=== PATIENT | male | born 1960 | race Caucasian/White ===

== ENCOUNTER 2019-01-23 02:54 | Inpatient (IN) ==
[2019-01-23 03:34] LABS: Bilirubin,Urine Negative (Negative); Blood,Urine Large (Negative); Clarity,Urine Cloudy (Clear); Color,Urine Yellow (Yellow); Glucose,Urine (UA) Normal (Normal); Ketones,Urine Negative (Negative); Leukocyte Esterase,Urine Negative (Negative); Nitrite,Urine Negative (Negative); PH,Urine 5.5 pH Units (5.0-8.0); Protein,Urine Trace mg/dL (Neg-Trace); Specific Gravity,Urine 1.022 (1.010-1.025); Urobilinogen,Urine Normal (Normal)
[2019-01-23 03:37] LABS: Hyaline Casts,Urine None Seen per lpf (None-Few); RBC,Urine 30-50 per hpf (0-3); Squamous Epithelial Cell,Urine Many per lpf (None-Few)
[2019-01-23 03:48] LABS: Amorphous Sediment,Urine Few (Few); Bacteria,Urine Few per hpf (None-Few)
[2019-01-23 03:48] LABS: Basophils % 0.4 %; Eosinophils # 0.2 K/mcL (0.0-0.6); Eosinophils % 1.7 %; Hematocrit 42.3 % (37.5-50.1); Hemoglobin 13.9 g/dL (12.9-16.9); Immature Granulocytes % 1.1 % (0-4); Lymphocytes # 1.1 K/mcL (0.6-4.6); Lymphocytes % 11.6 %; Mean Corpuscular HGB Conc 32.9 g/dL (31.6-35.5); Mean Corpuscular Hemoglobin 27.5 pg (28.0-33.3); Mean Corpuscular Volume 83.6 fL (83.0-100.0); Mean Platelet Volume 9.3 fL (9.4-12.4); Monocytes # 0.5 K/mcL (0.0-1.3); Monocytes % 5.2 %; Neutrophils # 7.9 K/mcL (1.6-8.9); Platelet Count 183 K/mcL (140-400); Red Blood Count 5.06 M/mcL (4.19-5.50); Red Cell Distribution Width 14.3 % (11.5-14.5)
[2019-01-23 04:07] LABS: Albumin 4.3 g/dL (3.5-5.7); Albumin/Globulin Ratio 1.1 (1.1-2.2); Bilirubin,Direct 0.1 mg/dL (0.0-0.2); Bilirubin,Indirect 0.5 mg/dL (0.0-1.2); Bilirubin,Total 0.6 mg/dL (0.3-1.0); Calcium 10.1 mg/dL (8.6-10.3); Globulin 3.8 g/dL (2.4-3.5); Potassium 3.9 mEq/L (3.5-5.1); Total Protein 8.1 g/dL (6.4-8.9)
[2019-01-23] MEDS ORDERED: Ondansetron ODT 4 MG TAB.RAPDIS SL ONE (04:39)
[2019-01-23] MEDS ORDERED: *HR* HYDROcodone/Acet 10/325 mg TABLET PO ONE (04:39)
--- NOTE | 2019-01-23 05:05 | Emergency Department Note ---
Disposition Clinical Impression: Acute kidney injury, Hydronephrosis concurrent with and due to calculi of kidney and ureter, Nephrolithiasis Disposition: Still a Patient Condition: Fair Referrals: Manuel Swanson MD [Primary Care Provider] - Juan F Vasquez MD [Partnered Physician] - Forms: ED Satisfaction Letter, Work/School Release Time of Disposition: 07:13 Abdominal Pain HPI - General Chief Complaint: ED Abdominal Pain Stated Complaint: right flank pain N/V Time Seen by Provider: 01/23/19 04:29 Source: patient, family Mode of arrival: ambulatory Limitations: no limitations Nursing Notes Reviewed: Yes Vital Signs Reviewed: Yes - History of Present Illness HPI Narrative: 58 yo male with PMHx of kidney stones, CHF, HLD, HTN, CVA, atrial fibrillation, diabetes presents to the emergency department with right flank pain radiating into his groin since Friday night. Patient states the pain was of sudden onset and feels exactly like his other kidney stones. He has not had any fevers at home, pain with urination, blood in his urine. He has been nauseous and vomiting and took some of his home dose of Zofran which helped relieve the nausea for short time periods. He states the pain is currently an 8 out of 10 and he cannot uncomfortable. He has needed stent placement on previous kidney stones as they had been too large to pass. He is currently on blood thinners for his afib and CVA. He denies any other complaints at this time. Pain Scale: 7 - Related Data Home Medications Medication Instructions Recorded Confirmed Atorvastatin [Lipitor] 10 mg PO HS 07/05/15 06/17/17 Insulin Glargine,Hum.rec.anlog 80 unit SQ HS 07/05/15 11/14/18 [Lantus Solostar] Aspirin 81 mg PO DAILY 07/22/16 11/14/18 Rivaroxaban [Xarelto] 20 mg PO 1700 07/22/16 11/14/18 Carvedilol [Coreg] 25 mg PO BID 11/14/18 11/14/18 Docusate [Colace] 100 mg PO BID 11/14/18 11/14/18 Lidocaine Patch [Lidoderm 5% patch] 1 each TP DAILY 11/14/18 11/14/18 OxyCODONE Immed Rel [Roxicodone 5 5 mg PO Q4HR PRN 11/14/18 11/14/18 MG] Sertraline [Zoloft] 50 mg PO DAILY 11/14/18 11/14/18 Spironolactone [Aldactone] 25 mg PO DAILY 11/14/18 11/14/18 Allergies Allergy/AdvReac Type Severity Reaction Status Date / Time sotalol Allergy Unknown See Verified 01/23/19 03:10 Comments lisinopril Allergy Anaphylaxis Verified 01/23/19 03:10 amiodarone AdvReac See Verified 01/23/19 03:10 Comments amitriptyline AdvReac Confusion Verified 01/23/19 03:10 dofetilide [From Tikosyn] AdvReac Insomnia Verified 01/23/19 03:10 Nortriptyline AdvReac Confusion Verified 01/23/19 03:10 trazodone AdvReac Confusion Verified 01/23/19 03:10 Zolpidem [From Ambien] AdvReac Confusion Verified 01/23/19 03:10 All systems ED: reviewed and negative except as stated. Review of Systems: As Per HPI Constitutional: Denies: fever, chills, weakness Cardiovascular: Denies: chest pain, palpitations, dyspnea on exertion Respiratory: Denies: cough, dyspnea, wheezes Gastrointestinal: Reports: abdominal pain, nausea, vomiting. Denies: diarrhea, hematemesis Genitourinary: Denies: dysuria, hematuria Musculoskeletal: Reports: back pain Integumentary: Denies: rash Neurological: Denies: headache, weakness, numbness Endocrine: Denies: fatigue Abdominal Pain PMH - Past Medical History Medical history: Reports: atrial fibrillation, CHF, CVA, diabetes, hyperlipidemia, hypertension, kidney stones, seizures Male Surgical History: Reports: cholecystectomy, other Psychiatric history: Reports: anxiety, depression - Social History Smoking status: Never smoker Alcohol use: Reports: none Drug use: Reports: none Physical Exam - General Limitations: no limitations General appearance: alert, in no apparent distress - Head Head exam: atraumatic, normocephalic - Eye Eye exam: Present: normal appearance, PERRL, EOMI - Chest Chest inspection: Present: normal inspection. Absent: tenderness, rash - Respiratory Respiratory exam: Present: normal lung sounds bilaterally - Cardiovascular Cardiovascular exam: Present: regular rate, normal rhythm - Abdominal Exam Abdominal exam: Present: soft, Non-Tender. Absent: distention, guarding, rebound, rigidity Abdominal tenderness: Absent: suprapubic - Extremities Exam Extremities exam: Present: normal inspection. Absent: tenderness, pedal edema - Back Exam Back exam: Present: CVA tenderness (R). Absent: CVA tenderness (L) - Neurological Exam Neurological exam: Present: alert, oriented X3 - Psychiatric Psychiatric exam: Present: normal affect, normal mood - Skin Skin exam: Present: warm, dry, intact Course Vital Signs Temperature 98.1 F 01/23/19 03:07 Pulse Rate 91 01/23/19 03:07 Respiratory Rate 20 01/23/19 03:07 Blood Pressure 130/74 01/23/19 03:07 O2 Sat by Pulse Oximetry 94 01/23/19 03:07 Temperature 98.1 F 01/23/19 03:07 Pulse Rate 91 01/23/19 03:07 Respiratory Rate 20 01/23/19 03:07 Blood Pressure 130/74 01/23/19 03:07 O2 Sat by Pulse Oximetry 94 01/23/19 03:07 Oxygen Delivery Oxygen Delivery Room Air Abdominal Pain - MDM Narrative Medical decision making narrative: Patient with history of kidney stones presents to the emergency department with concern for another kidney stone. As he has needed urologic procedures for previous kidney stones and his creatinine is elevated on his visit today for the first time in his history here, we will obtain a noncontrast CT scan of the abdomen looking for hydronephrosis. The patient will also be given [place] for pain, Zofran for nausea and a liter of IV fluids for his headache. Urinalysis does not show any signs of infection. Lab work shows a new LIZZY without previous history of kidney disease. 0625 - CT scan of the abdomen demonstrates an obstructing stone 5-6mm at the mid ureter. The patient has just received his pain medications and will receive 1L of IV fluids for his LIZZY. Dr. Vasquez was called and informed of the patient and he states this patient can be seen on Friday if his pain and nausea can be controlled. We will reassess the patient once he has had his fluid bolus to determine disposition. 0700 - Pts pain is still not well controlled and he is agreeable with admission for further pain management and inpatient procedure. - Medical Records Medical records reviewed: Yes I reviewed the patient's medical records. - Lab Data Lab results reviewed: Yes I reviewed the patient's lab results. Result diagrams: 01/23/19 03:32 01/23/19 03:32 Lab Results 01/23/19 01/23/19 01/23/19 Range/Units 03:16 03:32 03:32 WBC 9.8 (4.3-11.1) K/mcL RBC 5.06 (4.19-5.50) M/mcL Hgb 13.9 (12.9-16.9) g/dL Hct 42.3 (37.5-50.1) % MCV 83.6 (83.0-100.0) fL MCH 27.5 L (28.0-33.3) pg MCHC 32.9 (31.6-35.5) g/dL RDW 14.3 (11.5-14.5) % Plt Count 183 (140-400) K/mcL MPV 9.3 L (9.4-12.4) fL Immature Gran % 1.1 (0-4) % Seg Neutrophils % 80.0 % Lymphocytes % 11.6 % Monocytes % 5.2 % Eosinophils % 1.7 % Basophils % 0.4 % Neutrophils # 7.9 (1.6-8.9) K/mcL Lymphocytes # 1.1 (0.6-4.6) K/mcL Monocytes # 0.5 (0.0-1.3) K/mcL Eosinophils # 0.2 (0.0-0.6) K/mcL Basophils # 0.0 (0.0-0.2) K/mcL Sodium 133 L (136-145) mEq/L Potassium 3.9 (3.5-5.1) mEq/L Chloride 95 L (98-107) mEq/L Carbon Dioxide 27 (23-29) mEq/L BUN 26 H (6-20) mg/dL Creatinine 1.90 H (0.70-1.30) mg/dL Est GFR ( Amer) 45 L (> 60) Est GFR (Non-Af Amer) 37 L (> 60) BUN/Creatinine Ratio 14 (6-26) Glucose 209 H (70-105) mg/dL Calculated Osmolality 287 (280-300) Calcium 10.1 (8.6-10.3) mg/dL Total Bilirubin 0.6 (0.3-1.0) mg/dL Direct Bilirubin 0.1 (0.0-0.2) mg/dL Indirect Bilirubin 0.5 (0.0-1.2) mg/dL AST 19 (13-39) Units/L ALT 18 (7-52) Units/L Alkaline Phosphatase 84 (34-104) Units/L Serum Total Protein 8.1 (6.4-8.9) g/dL Albumin 4.3 (3.5-5.7) g/dL Globulin 3.8 H (2.4-3.5) g/dL Albumin/Globulin Ratio 1.1 (1.1-2.2) Amylase 37 (29-103) Units/L Lipase 60 (11-82) Units/L Urine Color Yellow (Yellow) Urine Clarity Cloudy A (Clear) Urine pH 5.5 (5.0-8.0) pH Units Ur Specific [place] 1.022 (1.010-1.025) Urine Protein Trace (Neg-Trace) mg/dL Urine Glucose (UA) Normal (Normal) mg/dL Urine Ketones Negative (Negative) mg/dL Urine Blood Large H (Negative) Urine Nitrite Negative (Negative) Urine Bilirubin Negative (Negative) Urine Urobilinogen Normal (Normal) mg/dL Ur Leukocyte Esterase Negative (Negative) Urine Microscopic RBC 30-50 H (0-3) per hpf Urine Microscopic WBC 5-15 H (0-3) per hpf Ur Squamous Epith Cells Many H (None-Few) per lpf Amorphous Sediment Few (Few) Urine Bacteria Few (None-Few) per hpf Hyaline Casts None Seen (None-Few) per lpf Ur Culture Indicated? YES A (NO) - Radiology Data Radiology results reviewed: Yes I reviewed the patient's radiology results.
[2019-01-23] MEDS ORDERED: 0.9 % Sodium Chloride 1,000 ML IVC ONE (05:09)
--- NOTE | 2019-01-23 06:13 | Emergency Department Note ---
Disposition Clinical Impression: Acute kidney injury, Hydronephrosis concurrent with and due to calculi of kidney and ureter, Nephrolithiasis Disposition: Still a Patient Condition: Fair Referrals: Juan F Vasquez MD [Partnered Physician] - Manuel Swanson MD [Primary Care Provider] - Forms: ED Satisfaction Letter, Work/School Release General Adult HPI - General Chief complaint: ED Abdominal Pain Stated complaint: right flank pain N/V Time Seen by Provider: 01/23/19 04:29 Source: patient, family Mode of arrival: ambulatory Limitations: no limitations Nursing Notes Reviewed: Yes Vital Signs Reviewed: Yes - History of Present Illness Pain Scale: 7 - Related Data Home Medications Medication Instructions Recorded Confirmed Atorvastatin [Lipitor] 10 mg PO HS 07/05/15 01/23/19 Insulin Glargine,Hum.rec.anlog 80 unit SQ HS 07/05/15 01/23/19 [Lantus Solostar] Aspirin 81 mg PO DAILY 07/22/16 01/23/19 Rivaroxaban [Xarelto] 20 mg PO 1700 07/22/16 01/23/19 Carvedilol [Coreg] 25 mg PO BID 11/14/18 01/23/19 Docusate [Colace] 100 mg PO BID 11/14/18 01/23/19 Lidocaine Patch [Lidoderm 5% patch] 1 each TP DAILY 11/14/18 01/23/19 OxyCODONE Immed Rel [Roxicodone 5 5 mg PO Q4HR PRN 11/14/18 01/23/19 MG] Sertraline [Zoloft] 50 mg PO DAILY 11/14/18 01/23/19 Spironolactone [Aldactone] 25 mg PO DAILY 11/14/18 01/23/19 Allergies Allergy/AdvReac Type Severity Reaction Status Date / Time sotalol Allergy Unknown See Verified 01/23/19 03:10 Comments lisinopril Allergy Anaphylaxis Verified 01/23/19 03:10 amiodarone AdvReac See Verified 01/23/19 03:10 Comments amitriptyline AdvReac Confusion Verified 01/23/19 03:10 dofetilide [From Tikosyn] AdvReac Insomnia Verified 01/23/19 03:10 Nortriptyline AdvReac Confusion Verified 01/23/19 03:10 trazodone AdvReac Confusion Verified 01/23/19 03:10 Zolpidem [From Ambien] AdvReac Confusion Verified 01/23/19 03:10 Constitutional: Denies: fever, chills, weakness Cardiovascular: Denies: chest pain, palpitations, dyspnea on exertion Respiratory: Denies: cough, dyspnea, wheezes Gastrointestinal: Reports: abdominal pain, nausea, vomiting. Denies: diarrhea, hematemesis Genitourinary: Denies: dysuria, hematuria Musculoskeletal: Reports: back pain Integumentary: Denies: rash Neurological: Denies: headache, weakness, numbness Endocrine: Denies: fatigue Past Medical History - Past Medical History Medical history: Reports: atrial fibrillation, CHF, CVA, diabetes, hyperlipidemia, hypertension, kidney stones, seizures Surgical history: Reports: angioplasty/stent, ureteral stent, other Psychiatric history: Reports: anxiety, depression - Social History Smoking Status: Never smoker Smokeless Tobacco Status: No Alcohol use: Reports: none Drug use: Reports: none Physical Exam - General Limitations: no limitations General appearance: alert, in no apparent distress Course Vital Signs Temperature 98.1 F 01/23/19 03:07 Pulse Rate 91 01/23/19 03:07 Respiratory Rate 20 01/23/19 03:07 Blood Pressure 130/74 01/23/19 03:07 O2 Sat by Pulse Oximetry 94 01/23/19 03:07 Temperature 98.1 F 01/23/19 03:07 Pulse Rate 91 01/23/19 03:07 Respiratory Rate 20 01/23/19 03:07 Blood Pressure 130/74 01/23/19 03:07 O2 Sat by Pulse Oximetry 94 01/23/19 03:07 Oxygen Delivery Oxygen Delivery Room Air Medical Decision Making - Lab Data Lab results reviewed: Yes I reviewed the patient's lab results. Result diagrams: 01/23/19 03:32 01/23/19 03:32 Lab Results 01/23/19 01/23/19 01/23/19 Range/Units 03:16 03:32 03:32 WBC 9.8 (4.3-11.1) K/mcL RBC 5.06 (4.19-5.50) M/mcL Hgb 13.9 (12.9-16.9) g/dL Hct 42.3 (37.5-50.1) % MCV 83.6 (83.0-100.0) fL MCH 27.5 L (28.0-33.3) pg MCHC 32.9 (31.6-35.5) g/dL RDW 14.3 (11.5-14.5) % Plt Count 183 (140-400) K/mcL MPV 9.3 L (9.4-12.4) fL Immature Gran % 1.1 (0-4) % Seg Neutrophils % 80.0 % Lymphocytes % 11.6 % Monocytes % 5.2 % Eosinophils % 1.7 % Basophils % 0.4 % Neutrophils # 7.9 (1.6-8.9) K/mcL Lymphocytes # 1.1 (0.6-4.6) K/mcL Monocytes # 0.5 (0.0-1.3) K/mcL Eosinophils # 0.2 (0.0-0.6) K/mcL Basophils # 0.0 (0.0-0.2) K/mcL Sodium 133 L (136-145) mEq/L Potassium 3.9 (3.5-5.1) mEq/L Chloride 95 L (98-107) mEq/L Carbon Dioxide 27 (23-29) mEq/L BUN 26 H (6-20) mg/dL Creatinine 1.90 H (0.70-1.30) mg/dL Est GFR ( Amer) 45 L (> 60) Est GFR (Non-Af Amer) 37 L (> 60) BUN/Creatinine Ratio 14 (6-26) Glucose 209 H (70-105) mg/dL Calculated Osmolality 287 (280-300) Calcium 10.1 (8.6-10.3) mg/dL Total Bilirubin 0.6 (0.3-1.0) mg/dL Direct Bilirubin 0.1 (0.0-0.2) mg/dL Indirect Bilirubin 0.5 (0.0-1.2) mg/dL AST 19 (13-39) Units/L ALT 18 (7-52) Units/L Alkaline Phosphatase 84 (34-104) Units/L Serum Total Protein 8.1 (6.4-8.9) g/dL Albumin 4.3 (3.5-5.7) g/dL Globulin 3.8 H (2.4-3.5) g/dL Albumin/Globulin Ratio 1.1 (1.1-2.2) Amylase 37 (29-103) Units/L Lipase 60 (11-82) Units/L Urine Color Yellow (Yellow) Urine Clarity Cloudy A (Clear) Urine pH 5.5 (5.0-8.0) pH Units Ur Specific [place] 1.022 (1.010-1.025) Urine Protein Trace (Neg-Trace) mg/dL Urine Glucose (UA) Normal (Normal) mg/dL Urine Ketones Negative (Negative) mg/dL Urine Blood Large H (Negative) Urine Nitrite Negative (Negative) Urine Bilirubin Negative (Negative) Urine Urobilinogen Normal (Normal) mg/dL Ur Leukocyte Esterase Negative (Negative) Urine Microscopic RBC 30-50 H (0-3) per hpf Urine Microscopic WBC 5-15 H (0-3) per hpf Ur Squamous Epith Cells Many H (None-Few) per lpf Amorphous Sediment Few (Few) Urine Bacteria Few (None-Few) per hpf Hyaline Casts None Seen (None-Few) per lpf Ur Culture Indicated? YES A (NO) - Radiology Data Radiology results reviewed: Yes I reviewed the patient's radiology results. Abdomen/Pelvis CT 01/23/19 04:40 IMPRESSION: Mid right ureteral calculus with obstructive uropathy. There are also calculi in both kidneys. D/ / David Perez MD / David Perez MD Interpreting Provider: David Perez MD Attestation Statement - Attestation Attestation: I, Jesus Mccurdy MD, personally evaluated this patient and discussed their management with the resident physician. I reviewed the resident's note and agree with the documented findings, medical decision making, and plan of care. 58-year-old male presents to the emergency department with a complaint of right flank pain radiating around to the right lower abdomen. The pain started Friday afternoon. The pain seemed to resolve and has been intermittent over the past 2 days. It became severe about midnight tonight. No gross hematuria. No dysuria. No fever. Some nausea and vomiting secondary to the pain. Patient has a prior history of multiple kidney stones and this feels the same as previous kidney stones. On examination patient is a well-developed obese male in no acute distress. He is alert and oriented 3. There is no cyanosis or diaphoresis. Breath sounds are clear and equal bilaterally. Heart regular rate and rhythm. Abdomen soft with normal bowel sounds. Mild right CVA tenderness. Mild right mid abdominal tenderness. Patient does have some ecchymosis and mild induration over the right upper anterior abdominal wall secondary to his insulin injections. No erythema or fluctuance. Labs reviewed. Acute kidney injury noted with creatinine of 1.90 which is significantly above patient's baseline. CT the abdomen and pelvis showed a 5-6 mm stone in the mid right ureter with mild right hydroureteronephrosis with perinephric and periureteral stranding. Patient discussed with the urologist chuck wagon cook, Dr. Vasquez. He felt the acute kidney injury did not absolutely need to be admitted but it was up to the patient and how comfortable he felt going home if we could control his pain. Patient received pain medication but continued to have pain. He received Dilaudid 1 mg IV after initial oral medications. At morning shift change the hospitalist has been paged twice since 7 AM and has not returned the page. Patient is signed out to the oncoming dayshift physician Dr. Mayers, to discuss patient with the hospitalist for admission.
[2019-01-23] MEDS ORDERED: *HR* HYDROmorphone (PF) 1 MG/ML SYRINGE IVP ONE (07:04)
--- NOTE | 2019-01-23 07:58 | Emergency Department Note ---
Disposition Clinical Impression: Acute kidney injury, Hydronephrosis concurrent with and due to calculi of kidney and ureter, Nephrolithiasis Disposition: Admitted As Inpatient Condition: Fair Referrals: Juan F Vasquez MD [Partnered Physician] - Manuel Swanson MD [Primary Care Provider] - Forms: ED Satisfaction Letter, Work/School Release Time of Disposition: 07:57 General Adult HPI - General Chief complaint: ED Abdominal Pain Stated complaint: right flank pain N/V Time Seen by Provider: 01/23/19 04:29 Source: patient, family Mode of arrival: ambulatory Limitations: no limitations - History of Present Illness Pain Scale: 7 - Related Data Home Medications Medication Instructions Recorded Confirmed Atorvastatin [Lipitor] 10 mg PO HS 07/05/15 01/23/19 Insulin Glargine,Hum.rec.anlog 80 unit SQ HS 07/05/15 01/23/19 [Lantus Solostar] Aspirin 81 mg PO DAILY 07/22/16 01/23/19 Rivaroxaban [Xarelto] 20 mg PO 1700 07/22/16 01/23/19 Carvedilol [Coreg] 25 mg PO BID 11/14/18 01/23/19 Docusate [Colace] 100 mg PO BID 11/14/18 01/23/19 Lidocaine Patch [Lidoderm 5% patch] 1 each TP DAILY 11/14/18 01/23/19 OxyCODONE Immed Rel [Roxicodone 5 5 mg PO Q4HR PRN 11/14/18 01/23/19 MG] Sertraline [Zoloft] 50 mg PO DAILY 11/14/18 01/23/19 Spironolactone [Aldactone] 25 mg PO DAILY 11/14/18 01/23/19 Allergies Allergy/AdvReac Type Severity Reaction Status Date / Time sotalol Allergy Unknown See Verified 01/23/19 03:10 Comments lisinopril Allergy Anaphylaxis Verified 01/23/19 03:10 amiodarone AdvReac See Verified 01/23/19 03:10 Comments amitriptyline AdvReac Confusion Verified 01/23/19 03:10 dofetilide [From Tikosyn] AdvReac Insomnia Verified 01/23/19 03:10 Nortriptyline AdvReac Confusion Verified 01/23/19 03:10 trazodone AdvReac Confusion Verified 01/23/19 03:10 Zolpidem [From Ambien] AdvReac Confusion Verified 01/23/19 03:10 Constitutional: Denies: fever, chills, weakness Cardiovascular: Denies: chest pain, palpitations, dyspnea on exertion Respiratory: Denies: cough, dyspnea, wheezes Gastrointestinal: Reports: abdominal pain, nausea, vomiting. Denies: diarrhea, hematemesis Genitourinary: Denies: dysuria, hematuria Musculoskeletal: Reports: back pain Integumentary: Denies: rash Neurological: Denies: headache, weakness, numbness Endocrine: Denies: fatigue Past Medical History - Past Medical History Medical history: Reports: atrial fibrillation, CHF, CVA, diabetes, hyperlipidemia, hypertension, kidney stones, seizures Surgical history: Reports: angioplasty/stent, ureteral stent, other Psychiatric history: Reports: anxiety, depression - Social History Smoking Status: Never smoker Smokeless Tobacco Status: No Alcohol use: Reports: none Drug use: Reports: none Physical Exam - General Limitations: no limitations General appearance: alert, in no apparent distress Course Course Narrative: Patient was signed out from the overnight physician Dr. Mccurdy. Detailed review the presentation symptoms and consultations were discussed. Labs were reviewed by myself as well as a CT imaging. Repeat physical exam shows no significant changes at this time. The patient does describe that his pain is much better controlled and is resting comfortably in the bed. Patient has no other abnormalities noted at this time. Mild abdominal discomfort with no point tenderness or guarding. Patient was discussed with the hospitalist Dr. Eduardo and admission process to be established for what appears to be acute renal insufficiency secondary to obstructing midureteral stone. Patient does not need any antibiotics at this point. Symptomatic control will be completed. Patient is otherwise resting comfortably in the bed at the time of admission. Patient is otherwise clinically stable. See previous documentation of the physical exam intervention the previous providers notes. No other acute issues noted at this time. Patient will be monitored here in the emergency department to the admission process is completed. Vital Signs Temperature 98.1 F 01/23/19 03:07 Pulse Rate 91 01/23/19 03:07 Respiratory Rate 20 01/23/19 03:07 Blood Pressure 130/74 01/23/19 03:07 O2 Sat by Pulse Oximetry 94 01/23/19 03:07 Temperature 98.1 F 01/23/19 03:07 Pulse Rate 91 01/23/19 03:07 Respiratory Rate 20 01/23/19 03:07 Blood Pressure 130/74 01/23/19 03:07 O2 Sat by Pulse Oximetry 94 01/23/19 03:07 Oxygen Delivery Oxygen Delivery Room Air Medical Decision Making - Lab Data Result diagrams: 01/23/19 03:32 01/23/19 03:32 Lab Results 01/23/19 01/23/19 01/23/19 Range/Units 03:16 03:32 03:32 WBC 9.8 (4.3-11.1) K/mcL RBC 5.06 (4.19-5.50) M/mcL Hgb 13.9 (12.9-16.9) g/dL Hct 42.3 (37.5-50.1) % MCV 83.6 (83.0-100.0) fL MCH 27.5 L (28.0-33.3) pg MCHC 32.9 (31.6-35.5) g/dL RDW 14.3 (11.5-14.5) % Plt Count 183 (140-400) K/mcL MPV 9.3 L (9.4-12.4) fL Immature Gran % 1.1 (0-4) % Seg Neutrophils % 80.0 % Lymphocytes % 11.6 % Monocytes % 5.2 % Eosinophils % 1.7 % Basophils % 0.4 % Neutrophils # 7.9 (1.6-8.9) K/mcL Lymphocytes # 1.1 (0.6-4.6) K/mcL Monocytes # 0.5 (0.0-1.3) K/mcL Eosinophils # 0.2 (0.0-0.6) K/mcL Basophils # 0.0 (0.0-0.2) K/mcL Sodium 133 L (136-145) mEq/L Potassium 3.9 (3.5-5.1) mEq/L Chloride 95 L (98-107) mEq/L Carbon Dioxide 27 (23-29) mEq/L BUN 26 H (6-20) mg/dL Creatinine 1.90 H (0.70-1.30) mg/dL Est GFR ( Amer) 45 L (> 60) Est GFR (Non-Af Amer) 37 L (> 60) BUN/Creatinine Ratio 14 (6-26) Glucose 209 H (70-105) mg/dL Calculated Osmolality 287 (280-300) Calcium 10.1 (8.6-10.3) mg/dL Total Bilirubin 0.6 (0.3-1.0) mg/dL Direct Bilirubin 0.1 (0.0-0.2) mg/dL Indirect Bilirubin 0.5 (0.0-1.2) mg/dL AST 19 (13-39) Units/L ALT 18 (7-52) Units/L Alkaline Phosphatase 84 (34-104) Units/L Serum Total Protein 8.1 (6.4-8.9) g/dL Albumin 4.3 (3.5-5.7) g/dL Globulin 3.8 H (2.4-3.5) g/dL Albumin/Globulin Ratio 1.1 (1.1-2.2) Amylase 37 (29-103) Units/L Lipase 60 (11-82) Units/L Urine Color Yellow (Yellow) Urine Clarity Cloudy A (Clear) Urine pH 5.5 (5.0-8.0) pH Units Ur Specific [place] 1.022 (1.010-1.025) Urine Protein Trace (Neg-Trace) mg/dL Urine Glucose (UA) Normal (Normal) mg/dL Urine Ketones Negative (Negative) mg/dL Urine Blood Large H (Negative) Urine Nitrite Negative (Negative) Urine Bilirubin Negative (Negative) Urine Urobilinogen Normal (Normal) mg/dL Ur Leukocyte Esterase Negative (Negative) Urine Microscopic RBC 30-50 H (0-3) per hpf Urine Microscopic WBC 5-15 H (0-3) per hpf Ur Squamous Epith Cells Many H (None-Few) per lpf Amorphous Sediment Few (Few) Urine Bacteria Few (None-Few) per hpf Hyaline Casts None Seen (None-Few) per lpf Ur Culture Indicated? YES A (NO)
--- NOTE | 2019-01-23 09:32 | Urology - Consult Note ---
Date of Encounter: 01/23/19 Time of Encounter: 09:30 - Assessment and Plan (1) Calculus of kidney Current Visit: Yes Status: Acute Assessment and plan: 58-year-old man with a history of a right ureteral stone and renal insufficie ncy. He has been admitted for further care. We reviewed his films. I recommend proceeding with a right ureteroscopy, laser lithotripsy, and stent placement. He was informed of the risks of the procedure including but not limited to bleeding, infection, injury to other structures, need for further procedures, stent irritation, incomplete fragmentation, ureteral perforation, need for nephrostomy tube, need for open repair, risks unforeseen, and the risk of anesthesia. He is willing to proceed. We will keep him nothing by mouth. Antibiotics be ordered websphere consultant to the operating room. Appreciate internal medicine support. (2) Acute kidney injury Current Visit: Yes Status: Acute (3) Hydronephrosis concurrent with and due to calculi of kidney and ureter Current Visit: Yes Status: Acute Urology CN:HPI Consult date: 01/23/19 Reason for consult Urology: Other (right ureteral stone) History of present illness: 58-year-old man presents with a history over the last 1-2 days with right flank pain. The pain has become more severe. It is located in the right flank and radiates to the right groin. He came to the emergency department. He has a known history of kidney stones and was treated back in 2011. His CT scan which showed evidence of an obstructing right mid ureteral stone. He has multiple stones in both kidneys. His creatinine elevated and he was admitted for further care. He has a history of stroke and gout. Past Med Surg Social Fam HX - Past Medical History Medical history: atrial fibrillation, CHF, CVA, diabetes, hyperlipidemia, hypertension, kidney stones, seizures Additional medical history: gout, anemia, sleep apnea Psychiatric history: anxiety, depression - Past Surgical History Surgical History: angioplasty/stent, ureteral stent, other Additional surgical history: coronary stent x1 2010. lithotripsy - Social History Smoking Status: Never smoker Smokeless Tobacco Status: No Alcohol use: none Drug use: none - Family History Father Living Status: Hx Family Cardiac Disorders: Yes Mother Family Member Ethnicity: Non- Hx Family Cardiac Disorders: Yes (afib) Hx Family Respiratory Disorders: Yes (COPD) Hx Family Endocrine Disorder: Yes (DM type II) Medications and Allergies Atorvastatin [Lipitor] 10 mg PO HS 07/05/15 [History] Insulin Glargine,Hum.rec.anlog [Lantus Solostar] 80 unit SQ HS 07/05/15 [History] Aspirin 81 mg PO DAILY 07/22/16 [History] Rivaroxaban [Xarelto] 20 mg PO 1700 07/22/16 [History] Carvedilol [Coreg] 25 mg PO BID 11/14/18 [History] Docusate [Colace] 100 mg PO BID 11/14/18 [History] Lidocaine Patch [Lidoderm 5% patch] 1 each TP DAILY 11/14/18 [History] OxyCODONE Immed Rel [Roxicodone 5 MG] 5 mg PO Q4HR PRN 11/14/18 [History] Sertraline [Zoloft] 50 mg PO DAILY 11/14/18 [History] Spironolactone [Aldactone] 25 mg PO DAILY 11/14/18 [History] Allergy/AdvReac Type Severity Reaction Status Date / Time sotalol Allergy Unknown See Verified 01/23/19 03:10 Comments lisinopril Allergy Anaphylaxis Verified 01/23/19 03:10 amiodarone AdvReac See Verified 01/23/19 03:10 Comments amitriptyline AdvReac Confusion Verified 01/23/19 03:10 dofetilide [From Tikosyn] AdvReac Insomnia Verified 01/23/19 03:10 Nortriptyline AdvReac Confusion Verified 01/23/19 03:10 trazodone AdvReac Confusion Verified 01/23/19 03:10 Zolpidem [From Ambien] AdvReac Confusion Verified 01/23/19 03:10 Review of Systems - Constitutional no chills, no fever(s) - EENT Nose, mouth and throat: no dizziness - Cardiovascular no chest pain - Respiratory no dyspnea - Gastrointestinal no nausea, no vomiting - Genitourinary flank pain, no hematuria - Musculoskeletal no back pain - Integumentary no erythema, no rash - Neurological no weakness - Psychiatric no suicidal ideation - Hematologic/Lymphatic no easy bleeding - Allergic/Immunologic no wheezing Exam Initial Vital Signs Temp Pulse Resp BP Pulse Ox 98.1 F 91 20 130/74 94 01/23/19 03:07 01/23/19 03:07 01/23/19 03:07 01/23/19 03:07 01/23/19 03:07 - General physical appearance Present: well developed, well nourished, no distress - Eyes Absent: icteric - ENT Present: normal nares, other (On BiPAP) - Neck Present: trachea midline - Respiratory Present: normal respiratory effort - Cardiovascular Cardiovascular exam IM: RRR - Abdomen Abdomen: Present: soft (Obese) - Integumentary Present: no rash - Neurologic Present: normal coordination - Musculoskeletal Present: other (No edema.) Urology Results - Labs 01/23/19 03:32 01/23/19 03:32 Abnormal lab results MCH 27.5 pg (28.0-33.3) L 01/23/19 03:32 MPV 9.3 fL (9.4-12.4) L 01/23/19 03:32 Sodium 133 mEq/L (136-145) L 01/23/19 03:32 Chloride 95 mEq/L (98-107) L 01/23/19 03:32 BUN 26 mg/dL (6-20) H 01/23/19 03:32 1.90 mg/dL (0.70-1.30) H 01/23/19 03:32 Est GFR ( Amer) 45 (> 60) L 01/23/19 03:32 Est GFR (Non-Af Amer) 37 (> 60) L 01/23/19 03:32 Glucose 209 mg/dL (70-105) H 01/23/19 03:32 3.8 g/dL (2.4-3.5) H 01/23/19 03:32 Cloudy (Clear) A 01/23/19 03:16 Large (Negative) H 01/23/19 03:16 30-50 per hpf (0-3) H 01/23/19 03:16 5-15 per hpf (0-3) H 01/23/19 03:16 Ur Squamous Epith Cells Many per lpf (None-Few) H 01/23/19 03:16 Ur Culture Indicated? YES (NO) A 01/23/19 03:16 Diabetes panel 01/23/19 Range/Units 03:32 Sodium 133 L (136-145) mEq/L Potassium 3.9 (3.5-5.1) mEq/L Chloride 95 L (98-107) mEq/L Carbon Dioxide 27 (23-29) mEq/L BUN 26 H (6-20) mg/dL Creatinine 1.90 H (0.70-1.30) mg/dL Glucose 209 H (70-105) mg/dL Calcium 10.1 (8.6-10.3) mg/dL AST 19 (13-39) Units/L ALT 18 (7-52) Units/L Alkaline Phosphatase 84 (34-104) Units/L Albumin 4.3 (3.5-5.7) g/dL Calcium panel 01/23/19 Range/Units 03:32 Calcium 10.1 (8.6-10.3) mg/dL Albumin 4.3 (3.5-5.7) g/dL Pituitary panel 01/23/19 Range/Units 03:32 Sodium 133 L (136-145) mEq/L Potassium 3.9 (3.5-5.1) mEq/L Chloride 95 L (98-107) mEq/L Carbon Dioxide 27 (23-29) mEq/L BUN 26 H (6-20) mg/dL Creatinine 1.90 H (0.70-1.30) mg/dL Glucose 209 H (70-105) mg/dL Calcium 10.1 (8.6-10.3) mg/dL Adrenal panel 01/23/19 Range/Units 03:32 Sodium 133 L (136-145) mEq/L Potassium 3.9 (3.5-5.1) mEq/L Chloride 95 L (98-107) mEq/L Carbon Dioxide 27 (23-29) mEq/L BUN 26 H (6-20) mg/dL Creatinine 1.90 H (0.70-1.30) mg/dL Glucose 209 H (70-105) mg/dL Calcium 10.1 (8.6-10.3) mg/dL Total Bilirubin 0.6 (0.3-1.0) mg/dL AST 19 (13-39) Units/L ALT 18 (7-52) Units/L Alkaline Phosphatase 84 (34-104) Units/L Albumin 4.3 (3.5-5.7) g/dL All other labs normal. - Imaging CT scan - abdomen: report reviewed, image reviewed CT scan - pelvis: report reviewed, image reviewed Consult Discharge Plan - Plan Referrals: Manuel Swanson MD [Primary Care Provider] -
[2019-01-23] MEDS ORDERED: cefTRIAXone 1,000 MG in Water for inj. (sterile) 20 ML 10 ML IVP ONE (09:35)
--- NOTE | 2019-01-23 11:17 | Internal Med History&Physical ---
Date of Encounter: 01/23/19 Time of Encounter: 10:00 Internal Medicine - H&P: HPI Chief complaint: Flank pain History of present illness: 58-year-old male presents to the emergency department with a complaint of right flank pain radiating around to the right lower abdomen. The pain started Friday afternoon. The patient denied gross hematuria, dysuria. He is comp laining of nausea and vomiting. Patient has a prior history of multiple kidney stones and this feels the same as previous kidney stones. Labs revealed acute kidney injury most likely secondary to obstructive uropathy. The patient will be admitted for further evaluation and management. Urology was consulted and recommended to proceed with right ureteroscopy, laser lithotripsy, and stent placement. Past Med Surg Social Fam HX - Past Medical History Medical history: atrial fibrillation, CHF, CVA, diabetes, hyperlipidemia, hyp ertension, kidney stones, seizures Additional medical history: gout, anemia, sleep apnea Psychiatric history: anxiety, depression - Past Surgical History Surgical History: angioplasty/stent, ureteral stent, other Additional surgical history: coronary stent x1 2010. lithotripsy - Social History Smoking Status: Never smoker Smokeless Tobacco Status: No Alcohol use: none Drug use: none - Family History Father Living Status: Hx Family Cardiac Disorders: Yes Mother Family Member Ethnicity: Non- Hx Family Cardiac Disorders: Yes (afib) Hx Family Respiratory Disorders: Yes (COPD) Hx Family Endocrine Disorder: Yes (DM type II) Internal Medicine - H&P: Meds Insulin Glargine,Hum.rec.anlog [Lantus Solostar] 80 unit SQ HS 07/05/15 [History] Aspirin 81 mg PO DAILY 07/22/16 [History] Rivaroxaban [Xarelto] 20 mg PO 1700 07/22/16 [History] Carvedilol [Coreg] 25 mg PO BID 11/14/18 [History] Docusate [Colace] 100 mg PO BID 11/14/18 [History] Lidocaine Patch [Lidoderm 5% patch] 1 each TP HS 11/14/18 [History] Sertraline [Zoloft] 50 mg PO DAILY 11/14/18 [History] Spironolactone [Aldactone] 25 mg PO DAILY 11/14/18 [History] Furosemide [Lasix] 60 mg PO DAILY 01/24/19 [History] Insulin ASPART [Novolog Flexpen] 0 unit SQ AD PRN 01/24/19 [History] Hyoscyamine SL [Levsin Sl] 0.125 mg SL TID PRN #15 tab.subl 01/25/19 [Rx] OxyCODONE Immed Rel [Roxicodone 5 MG] 5 mg PO Q6HR PRN 5 Days #14 tablet 01/25/19 [Rx] Allergy/AdvReac Type Severity Reaction Status Date / Time sotalol Allergy Unknown See Verified 01/23/19 03:10 Comments lisinopril Allergy Anaphylaxis Verified 01/23/19 03:10 amiodarone AdvReac See Verified 01/23/19 03:10 Comments amitriptyline AdvReac Confusion Verified 01/23/19 03:10 dofetilide [From Tikosyn] AdvReac Insomnia Verified 01/23/19 03:10 Nortriptyline AdvReac Confusion Verified 01/23/19 03:10 trazodone AdvReac Confusion Verified 01/23/19 03:10 Zolpidem [From Ambien] AdvReac Confusion Verified 01/23/19 03:10 All Systems PM: A 10-system review of systems was performed and is negative for pertinent findings except as documented above in the HPI. - Constitutional Constitutional: no chills, no fever(s), no night sweats - EENT Eyes: no change in vision, no discharge, no pain, no photophobia Ears: no ear discharge, no ear pain, no tinnitus Nose, mouth and throat: no dysphagia, no nasal discharge, no neck pain, no sore throat - Cardiovascular Cardiovascular ROS IM: no chest pain, no diaphoresis, no dyspnea, no lightheadedness, no palpitations, no syncope - Respiratory Respiratory: no cough, no dyspnea, no wheezing, no excessive phlegm production - Gastrointestinal Gastrointestinal: no abdominal pain, no diarrhea, no hematemesis, no hematochezia, no melena, no nausea, no vomiting - Genitourinary Genitourinary ROS male: flank pain - Musculoskeletal Musculoskeletal ROS IM: no numbness, no tingling - Integumentary Integumentary IM: no rash, no unusual bruising - Neurological Neurological ROS: no confusion, no convulsions, no focal weakness, no numbness, no tingling, no tremor(s) - Hematologic/Lymphatic Hematologic/Lymphatic: no easy bruising - Constitutional Vitals: Temp Pulse Resp BP Pulse Ox 97.2 F L 66 16 133/68 94 01/23/19 09:24 01/23/19 09:24 01/23/19 09:24 01/23/19 09:24 01/23/19 09:24 Exam: As below - Head Head exam: Present: atraumatic, normocephalic - Eye Eye exam: Present: PERRL, conjuntiva pink, sclera anicteric Pupils: Present: PERRL - Neck Neck exam general surgery: Present: supple, trachea midline. Absent: lymphadenopathy - Respiratory Respiratory exam: Present: CTAB. Absent: accessory muscle use, rales, rhonchi, wheezes - Cardiovascular Cardiovascular exam: Present: RRR, +S1, +S2. Absent: diastolic murmur, gallop, rubs, systolic murmur - GI/Abdominal GI/Abdominal exam: Present: normal bowel sounds, soft, tenderness, no peritoneal signs. Absent: distended - Extremities Exam Extremities exam: Present: warm, radial pulses palpable and symmetrical. Absent: calf tenderness, cyanotic, pedal edema - Neurological Exam Neurological exam: Present: CN II-XII intact, oriented X3, no focal deficits. Absent: pronater drift, facial droop, speech deficit - Skin Skin exam: Present: dry, intact Internal Med - H&P Results - Labs CBC & Chem 7: 01/25/19 04:18 01/25/19 04:18 Labs: Short CBC 01/23/19 Range/Units 03:32 WBC 9.8 (4.3-11.1) K/mcL Hgb 13.9 (12.9-16.9) g/dL Hct 42.3 (37.5-50.1) % Plt Count 183 (140-400) K/mcL Neutrophils # 7.9 (1.6-8.9) K/mcL BMP 01/23/19 03:32 Sodium 133 L Potassium 3.9 Chloride 95 L Carbon Dioxide 27 BUN 26 H Creatinine 1.90 H Glucose 209 H Calcium 10.1 Liver Function 01/23/19 Range/Units 03:32 Total Bilirubin 0.6 (0.3-1.0) mg/dL Direct Bilirubin 0.1 (0.0-0.2) mg/dL AST 19 (13-39) Units/L ALT 18 (7-52) Units/L Alkaline Phosphatase 84 (34-104) Units/L Albumin 4.3 (3.5-5.7) g/dL Urine 01/23/19 Range/Units 03:16 Urine Color Yellow (Yellow) Urine Clarity Cloudy A (Clear) Urine pH 5.5 (5.0-8.0) pH Units Ur Specific [place] 1.022 (1.010-1.025) Urine Protein Trace (Neg-Trace) mg/dL Urine Glucose (UA) Normal (Normal) mg/dL - Impressions ITS Impressions Abdomen/Pelvis CT 01/23/19 04:40 IMPRESSION: Mid right ureteral calculus with obstructive uropathy. There are also calculi in both kidneys. D/ / David Perez MD / David Perez MD Interpreting Provider: David Perez MD - Assessment and Plan (1) Hydronephrosis concurrent with and due to calculi of kidney and ureter Status: Acute Assessment and plan: Urology was consulted for further evaluation and management the patient is scheduled for right ureteroscopy, laser lithotripsy, and stent placement. (2) Acute kidney injury Status: Acute Assessment and plan: Most likely secondary to obstructive uropathy , urology was consulted and the patient will be scheduled for right ureteroscopy, laser lithotripsy, and stent placement. Will continue IV hydration with isotonic saline, avoid nephrotoxins, strict I&O's and renal dosing of medication as better current EGFR. (3) Congestive heart failure (CHF) Status: Chronic Assessment and plan: We will continue home medications it is no evidence of exacerbation, we will hold spironolactone for now Qualifiers: Heart failure type: diastolic Heart failure chronicity: chronic Qualified Code(s): I50.32 - Chronic diastolic (congestive) heart failure (4) Depression with anxiety Status: Chronic Assessment and plan: We will continue home medication (5) Gout Status: Chronic Qualifiers: Gout site: elbow Gout etiology: unspecified cause Chronicity: acute Laterality: right Qualified Code(s): M10.9 - Gout, unspecified (6) History of ischemic right MCA stroke Status: Chronic (7) Hypertension Status: Chronic Assessment and plan: We will continue home medication and monitor blood pressure while inpatient Qualifiers: Hypertension type: essential hypertension Qualified Code(s): I10 - Essential (primary) hypertension (8) TED (obstructive sleep apnea) Status: Chronic (9) Diabetes mellitus Status: Chronic Assessment and plan: We will hold home insulin and start the patient on insulin sliding scale with moderate coverage Qualifiers: Diabetes mellitus type: type 2 Diabetes mellitus manager terminal insulin use: with manager terminal use Diabetes mellitus complication status: with neurologic complications Diabetes mellitus complication detail: with polyneuropathy Qualified Code(s): E11.42 - Type 2 diabetes mellitus with diabetic polyneuropathy; Z79.4 - manager terminal (current) use of insulin (10) Coronary artery disease Status: Chronic Assessment and plan: We will continue home medication Qualifiers: Coronary Disease-Associated Artery/Lesion type: [place] artery [place] vs. transplanted heart: [place] heart Associated angina: without angina Qualified Code(s): I25.10 - Atherosclerotic heart disease of [place] coronary artery without angina pectoris (11) Atrial fibrillation Status: Chronic Assessment and plan: The patient is on chronic anticoagulation with xeralto, we will resume after procedure Qualifiers: Atrial fibrillation type: chronic Qualified Code(s): I48.2 - Chronic atrial fibrillation (12) DVT prophylaxis Status: Acute Assessment and plan: The patient is on chronic anticoagulation - Time Spent With Patient Total time spent is greater than 50% in coordination of care (as documented) at patient's floor/unit and/or counseling patient:
--- NOTE | 2019-01-23 11:27 | Anesthesia Evaluation PreOp ---
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: Seizures (none for two years), CVA (one year ago - residual left- sided weakness) Other Medical History: Renal (acute renal injury, obstructing stone), Diabetes Type II (uses insulin), Other (BMI 47) Anesthesia History: No Prior Anesthetic Complications (except nausea once) Alcohol Use: none Drug use: none Medications and Allergies Atorvastatin [Lipitor] 10 mg PO HS 07/05/15 [History] Insulin Glargine,Hum.rec.anlog [Lantus Solostar] 80 unit SQ HS 07/05/15 [History] Aspirin 81 mg PO DAILY 07/22/16 [History] Rivaroxaban [Xarelto] 20 mg PO 1700 07/22/16 [History] Carvedilol [Coreg] 25 mg PO BID 11/14/18 [History] Docusate [Colace] 100 mg PO BID 11/14/18 [History] Lidocaine Patch [Lidoderm 5% patch] 1 each TP DAILY 11/14/18 [History] OxyCODONE Immed Rel [Roxicodone 5 MG] 5 mg PO Q4HR PRN 11/14/18 [History] Sertraline [Zoloft] 50 mg PO DAILY 11/14/18 [History] Spironolactone [Aldactone] 25 mg PO DAILY 11/14/18 [History] Allergy/AdvReac Type Severity Reaction Status Date / Time sotalol Allergy Unknown See Verified 01/23/19 03:10 Comments lisinopril Allergy Anaphylaxis Verified 01/23/19 03:10 amiodarone AdvReac See Verified 01/23/19 03:10 Comments amitriptyline AdvReac Confusion Verified 01/23/19 03:10 dofetilide [From Tikosyn] AdvReac Insomnia Verified 01/23/19 03:10 Nortriptyline AdvReac Confusion Verified 01/23/19 03:10 trazodone AdvReac Confusion Verified 01/23/19 03:10 Zolpidem [From Ambien] AdvReac Confusion Verified 01/23/19 03:10 - Meds/Allergy Pre-op Review Medications Reviewed: Yes Allergies Reviewed: Yes Beta Blockers on Current Med List: Yes (coreg) If Beta Blockers taken, Date/Time (Last Dose taken): 01-23-19 coreg 12:41 Anesthesia Results - Labs 01/23/19 03:32 01/23/19 03:32 - Imaging EKG: report reviewed, image reviewed (ATRIAL FIBRILLATION POSSIBLE ANTERIOR MYOCARDIAL INFARCTION [30 ms Q WAVE IN V3/V4, OR R < 0.2 mV IN V4], PROBABLY OLD ABNORMAL RHYTHM ECG) Additional studies: TTE: Impressions: LVEF 60%. Normal LV chamber size and function. Mild concentric left ventricular hypertrophy. Indeterminate diastolic function. Grossly, mildly dilated right ventricle with normal function. Grossly, moderately dilated left atrium. No evidence of pulmonary hypertension. RVSP not well obtained. No obvious significant valvular dysfunction. Nuclear stress: Impression: Atrial fibrillation with nonspecific ST and T-wave changes throughout the study. Pharmacologic stress ECG is non-diagnostic for ischemia due to baseline ST and T-wave changes. Gated EF = 59%. Perfusion imaging was negative for ischemia or infarct. Holter: Impression: 1. Baseline rhythm atrial fibrillation with average heart rate 83 BPM. 2. Occasional PACs. 3. Pauses up to 2.3 seconds were nocturnal. 4. Symptoms did not correlate with a change in rhythm. 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
[2019-01-23] MEDS ORDERED: Naloxone 0.4 MG/ML INJ IVP PRN ×3 (11:44→16:59)
[2019-01-23] MEDS ORDERED: OXYCODONE Oral CONC 10 MG/0.5 ML ORAL.SYG SL PRN ×3 (11:44→16:59)
[2019-01-23] MEDS ORDERED: Ondansetron 4 MG/2 ML VIAL IVP PRN (11:44)
[2019-01-23] MEDS ORDERED: 0.9 % Sodium Chloride 1,000 ML IVC SCH (11:45)
[2019-01-23] MEDS ORDERED: *HR* Midazolam HCl 2 MG/2 ML VIAL ONE (12:48)
[2019-01-23] MEDS ORDERED: *HR* Propofol 200 MG/20 ML VIAL IVP ONE ×2 (12:48→14:31)
[2019-01-23] MEDS ORDERED: *HR* FentaNYL (PF) 100 MCG/2 ML VIAL ONE (12:52)
[2019-01-23] MEDS ORDERED: Isovue-300 50 ML VIAL ONE (14:14)
[2019-01-23] MEDS ORDERED: Dexamethasone 4 MG/ML VIAL ONE (14:26)
[2019-01-23] MEDS ORDERED: Ondansetron 4 MG/2 ML VIAL ONE (14:26)
--- NOTE | 2019-01-23 15:33 | Operative Note ---
Date of procedure: 01/23/19 Pre-op diagnosis: Right ureteral stone Post-op diagnosis: same Procedure: Right ureteroscopy, laser lithotripsy, basket stone extraction, and stent placement Implants: 6-Ethiopian by 26 cm double-J stent Complications: None Anesthesia: KIM Surgeon: Juan F Vasquez Was there an assistant manager bilingual present: No Estimated blood loss (cc): 1 Specimen: right ureteral stone Condition: stable Disposition: PACU Procedure in Detail: Indications: Mr. Sanford is a 58-year-old gentleman who has a history of right flank pain. A CT scan showed a 5 mm stone in the mid right ureter. He elected to undergo a right ureteroscopy, laser lithotripsy, and stent placement. He is aware of the risks of the procedure including but not limited to bleeding, infection, injury to other structures, need for further procedures, stent irritation, and the risk of anesthesia. He is willing to proceed. Procedure: After informed consent was obtained the patient was brought back to the operating room and placed in supine position. A time out was performed. General anesthesia was administered and an LMA was placed. He was then placed in the lithotomy position. He was prepped and draped in the usual sterile fashion. Cystoscopy was performed. The anterior urethra was normal. There was no evidence of bladder tumors. The ureteral orifices were in the normal orthotopic position. The Zip wire was placed in the right ureteral orifice and brought into the kidney under fluoroscopic guidance. The ureter was gently dilated with the 8/10 Ethiopian ureteral dilator. I then advanced the semirigid ureteroscope into the ureter. I was not able to move past the distal ureter with a semirigid ureteroscope. The flexible ureteroscope was advanced into the urethra and up the ureter alongside the wire. 3 stones were seen in the mid ureter. The 200 micron laser fiber was inserted. The stones were fragmented in small pieces. The stone fragments were basket extracted. A 6 Ethiopian by 26cm JJ stent was then placed with good curl seen in the kidney and the bladder. The dangle string was removed. The bladder was drained. The patient was then awakened from general anesthesia and brought to recovery room in good condition. All sponge, needle, and instrument counts were correct.
--- NOTE | 2019-01-23 18:06 | Anesthesia Evaluation Post Op ---
Date of Encounter: 01/23/19 Time of Encounter: 16:21 - Vital Signs Vital Signs: Last Vital Signs Temp 98.0 F 01/23/19 17:15 Pulse 66 01/23/19 17:15 Resp 16 01/23/19 17:15 BP 139/71 01/23/19 17:15 Pulse Ox 94 01/23/19 17:15 - Lungs Lungs: Clear Ascult./Percussion - Airway Airway: Non-obstructed - Cardiovascular Regular Rate - Mental Status Mental Status: Alert & Oriented, Answers Appropriately - Pain Pain Scale: 0 - Nausea Vomiting Nausea Vomiting: Not Present - Hydration Hydration: Ice chips - Discharge PostOp Status: Transfer Patient to floor
[2019-01-23] MEDS ORDERED: *HR* OxyCODONE Immed Rel 5 MG TABLET PO PRN (18:20)
[2019-01-23] MEDS ORDERED: Dextrose Gel 15 GM/37.5 ML TUBE PO PRN ×2 (18:22)
[2019-01-23] MEDS ORDERED: *HR* Dextrose 50 % in Water (Syg) 50 ML SYRINGE IVP PRN (18:22)
[2019-01-23] MEDS: 0.9 % Sodium Chloride 1,000 ML IVC SCH (18:22)
[2019-01-23] MEDS ORDERED: D5% in Water 1,000 ML IVC PRN (18:22)
[2019-01-23 19:01] LABS: Estimated Average Glucose 243 mg/dl; Hemoglobin A1C 10.1 %
[2019-01-23] MEDS: OXYCODONE Oral CONC 10 MG/0.5 ML ORAL.SYG SL PRN (20:02)
[2019-01-23] MEDS: Ondansetron 4 MG/2 ML VIAL IVP PRN (20:12)
[2019-01-23] MEDS: Insulin LISPRO 300 UNITS/3 ML VIAL SQ SCH ×2 (20:33→21:06)
[2019-01-23] MEDS: Insulin DETEMIR 100 UNIT/ML X5UNITS SQ SCH (21:07)
[2019-01-24] MEDS: 0.9 % Sodium Chloride 1,000 ML IVC SCH (03:26)
[2019-01-24 04:45] LABS: Hematocrit 38.1 % (37.5-50.1); Immature Granulocytes % 1.1 % (0-4); Mean Corpuscular HGB Conc 32.3 g/dL (31.6-35.5); Mean Corpuscular Hemoglobin 27.5 pg (28.0-33.3); Mean Corpuscular Volume 85.2 fL (83.0-100.0); Mean Platelet Volume 9.8 fL (9.4-12.4); Platelet Count 167 K/mcL (140-400); Red Blood Count 4.47 M/mcL (4.19-5.50)
[2019-01-24 04:46] LABS: Basophils % 0.3 %; Lymphocytes # 0.7 K/mcL (0.6-4.6); Monocytes # 0.3 K/mcL (0.0-1.3); Monocytes % 3.6 %; Neutrophils # 6.5 K/mcL (1.6-8.9)
[2019-01-24 04:47] LABS: Hemoglobin 12.3 g/dL (12.9-16.9)
[2019-01-24 04:57] LABS: Activated Partial Thrombo Time 33.6 Seconds (26.0-36.0); INR 1.2; Prothrombin Time 13.5 Seconds (9.4-12.1)
[2019-01-24 05:00] LABS: Alanine Aminotransferase 16 Units/L (7-52); Albumin 3.7 g/dL (3.5-5.7); Alkaline Phosphatase 69 Units/L (34-104); Aspartate Amino Transferase 20 Units/L (13-39); BUN/Creatinine Ratio 19 (6-26); Bilirubin,Total 0.4 mg/dL (0.3-1.0); Blood Urea Nitrogen 27 mg/dL (6-20); Calcium 8.7 mg/dL (8.6-10.3); Carbon Dioxide 25 mEq/L (23-29); Chloride 101 mEq/L (98-107); Globulin 3.7 g/dL (2.4-3.5); Glucose 276 mg/dL (70-105); Osmolality,Calculated 291 (280-300); Phosphorous 4.1 mg/dL (2.7-4.5); Potassium 4.7 mEq/L (3.5-5.1); Sodium 133 mEq/L (136-145); Total Protein 7.4 g/dL (6.4-8.9); eGFR For Non-African Americans 51 (> 60)
[2019-01-24] MEDS: Insulin LISPRO 300 UNITS/3 ML VIAL SQ SCH ×4 (09:01→20:26)
[2019-01-24] MEDS: Aspirin 81 MG TAB.CHEW PO SCH (09:01)
--- NOTE | 2019-01-24 10:36 | Urology Progress Note ---
Date of Encounter: 01/24/19 Time of Encounter: 10:35 - Assessment and Plan (1) Calculus of kidney Current Visit: Yes Status: Acute Assessment and plan: Postoperative day #1 status post right ureteroscopic stone extraction. We di scussed his CT findings. He wishes to proceed with further stone extraction. We will arrange for an outpatient second look ureteroscopy, laser lithotripsy, and stent placement on the right side to try to clear out his right renal stones. (2) Acute kidney injury Current Visit: Yes Status: Acute (3) Hydronephrosis concurrent with and due to calculi of kidney and ureter Current Visit: Yes Status: Acute Progress Note Narrative: Postoperative day #1 status post right ureteroscopy, laser lithotripsy, and stent placement. He did well after procedure. His urine is fairly bloody today, but he is on blood thinners. He denies any pain at this time. Objective Initial Vital Signs Temp Pulse Resp BP Pulse Ox 98.1 F 91 20 130/74 94 01/23/19 03:07 01/23/19 03:07 01/23/19 03:07 01/23/19 03:07 01/23/19 03:07 - General physical appearance Present: well developed, well nourished, no distress - Respiratory Present: normal respiratory effort - Abdomen Present: soft - Labs 01/24/19 04:07 01/24/19 04:07 Diabetes panel 01/23/19 01/24/19 Range/Units 03:32 04:07 Sodium 133 L (136-145) mEq/L Potassium 4.7 (3.5-5.1) mEq/L Chloride 101 (98-107) mEq/L Carbon Dioxide 25 (23-29) mEq/L BUN 27 H (6-20) mg/dL Creatinine 1.44 H (0.70-1.30) mg/dL Glucose 276 H (70-105) mg/dL Hemoglobin A1c 10.1 H ( - 5.6) % Calcium 8.7 (8.6-10.3) mg/dL AST 20 (13-39) Units/L ALT 16 (7-52) Units/L Alkaline Phosphatase 69 (34-104) Units/L Albumin 3.7 (3.5-5.7) g/dL Calcium panel 01/24/19 Range/Units 04:07 Calcium 8.7 (8.6-10.3) mg/dL Phosphorus 4.1 (2.7-4.5) mg/dL Albumin 3.7 (3.5-5.7) g/dL Pituitary panel 01/24/19 Range/Units 04:07 Sodium 133 L (136-145) mEq/L Potassium 4.7 (3.5-5.1) mEq/L Chloride 101 (98-107) mEq/L Carbon Dioxide 25 (23-29) mEq/L BUN 27 H (6-20) mg/dL Creatinine 1.44 H (0.70-1.30) mg/dL Glucose 276 H (70-105) mg/dL Calcium 8.7 (8.6-10.3) mg/dL Adrenal panel 01/24/19 Range/Units 04:07 Sodium 133 L (136-145) mEq/L Potassium 4.7 (3.5-5.1) mEq/L Chloride 101 (98-107) mEq/L Carbon Dioxide 25 (23-29) mEq/L BUN 27 H (6-20) mg/dL Creatinine 1.44 H (0.70-1.30) mg/dL Glucose 276 H (70-105) mg/dL Calcium 8.7 (8.6-10.3) mg/dL Total Bilirubin 0.4 (0.3-1.0) mg/dL AST 20 (13-39) Units/L ALT 16 (7-52) Units/L Alkaline Phosphatase 69 (34-104) Units/L Albumin 3.7 (3.5-5.7) g/dL Consult Discharge Plan - Plan Referrals: Manuel Swanson MD [Primary Care Provider] -
[2019-01-24] MEDS: Ondansetron 4 MG/2 ML VIAL IVP PRN (11:53)
--- NOTE | 2019-01-24 12:18 | Internal Med Progress Note ---
Hospitalist Progress Note - Encounter Date of Encounter: 01/24/19 Time of Encounter: 09:10 - Subjective Interval History: Patient having hematuria. Also complains of some abdominal pain. However he feels much better overall compared to yesterday. He did have nausea yesterday but this has improved. Patient states that his been weak and has not been able to ambulate by himself at home. Denies any focal weakness in his lower extremities. No numbness or tingling - Exam Vitals: Temp Pulse Resp BP Pulse Ox 97.8 F 67 19 139/78 92 01/24/19 11:29 01/24/19 11:29 01/24/19 11:29 01/24/19 11:29 01/24/19 11:29 Exam: General: Patient is alert, no acute distress, oriented x 3 ENT: Mucous membranes moist Respiratory: Good respiratory effort. Normal breath sounds. No wheezing or crackles. Cardiovascular: Regular rate and rhythm. s1 and s2 normal No clicks, rubs, gallops, or murmurs. No pedal edema Abdomen: Abdomen is soft, nontender. Bowel sounds are present Musculoskeletal: Spontaneously moving all extremities Skin: warm, dry, intact. Neuro: Alert oriented x 3 normal cranial nerves, no focal deficits - Assessment and Plan (1) Acute kidney injury Current Visit: Yes Status: Acute (2) Hydronephrosis concurrent with and due to calculi of kidney and ureter Current Visit: Yes Status: Acute (3) Atrial fibrillation Current Visit: Yes Status: Chronic (4) Diabetes mellitus Current Visit: No Status: Chronic (5) TED (obstructive sleep apnea) Current Visit: No Status: Chronic (6) Hypertension Current Visit: No Status: Chronic (7) DVT prophylaxis Current Visit: No Status: Acute (8) Coronary artery disease Current Visit: No Status: Chronic (9) Congestive heart failure (CHF) Current Visit: Yes Status: Chronic (10) Depression with anxiety Current Visit: No Status: Chronic (11) Gout Current Visit: No Status: Chronic (12) History of ischemic right MCA stroke Current Visit: No Status: Chronic - Summary of Assessment and Plan Summary of Assessment and Plan: Status post ureteroscopy with laser lithotripsy, basket stone extraction and stent placement. Postop day 1. Patient is clinically doing better. He does have hematuria. Will hold Xarelto. Discussed with urology. Patient stable to be discharged from their standpoint. However patient reports that his not been able to ambulate much and would like to see physical therapy. His renal function is improving. He does have some flank pain. Will place him on pyridium as needed. Monitor hemoglobin levels and renal function. Physical therapy consultation. Possible discharge tomorrow based on the recommendations. Moderate risk for complications. - Time Spent with Patient Total time spent is greater than 50% in coordination of care (as documented) at patient's floor/unit and/or counseling patient: Internal Medicine: Result - Labs CBC & Chem 7: 01/24/19 04:07 01/24/19 04:07 Labs: Short CBC 01/24/19 Range/Units 04:07 WBC 7.6 (4.3-11.1) K/mcL Hgb 12.3 L D (12.9-16.9) g/dL Hct 38.1 (37.5-50.1) % Plt Count 167 (140-400) K/mcL Neutrophils # 6.5 (1.6-8.9) K/mcL BMP 01/24/19 04:07 Sodium 133 L Potassium 4.7 Chloride 101 Carbon Dioxide 25 BUN 27 H Creatinine 1.44 H Glucose 276 H Calcium 8.7 Liver Function 01/24/19 Range/Units 04:07 Total Bilirubin 0.4 (0.3-1.0) mg/dL AST 20 (13-39) Units/L ALT 16 (7-52) Units/L Alkaline Phosphatase 69 (34-104) Units/L Albumin 3.7 (3.5-5.7) g/dL - ABG Interpretation ABG results: PT/INR, D-dimer PT 13.5 Seconds (9.4-12.1) H 01/24/19 04:07 - Impressions Impressions Fluoroscopy 01/23/19 14:45 IMPRESSION: Intraprocedural fluoroscopic spot images as above. See separate procedure report for more information. D/ / 01/23/2019 15:54:29 Juan F Fountain MD / [email or web address] Interpreting Provider: Juan F Fountain MD Consult Discharge Plan - Plan Referrals: Kiki,Manuel J, MD [Primary Care Provider] - (3) Atrial fibrillation Qualifiers: Atrial fibrillation type: chronic Qualified Code(s): I48.2 - Chronic atrial fibrillation (4) Diabetes mellitus Qualifiers: Diabetes mellitus type: type 2 Diabetes mellitus senior care insulin use: with senior care use Diabetes mellitus complication status: with neurologic complications Diabetes mellitus complication detail: with polyneuropathy Qualified Code(s): E11.42 - Type 2 diabetes mellitus with diabetic polyneuropathy; Z79.4 - prison (current) use of insulin (6) Hypertension Qualifiers: Hypertension type: essential hypertension Qualified Code(s): I10 - Essential (primary) hypertension (8) Coronary artery disease Qualifiers: Coronary Disease-Associated Artery/Lesion type: [place] artery [place] vs. transplanted heart: [place] heart Associated angina: without angina Qualified Code(s): I25.10 - Atherosclerotic heart disease of [place] coronary artery without angina pectoris (9) Congestive heart failure (CHF) Qualifiers: Heart failure type: diastolic Heart failure chronicity: chronic Qualified Code(s): I50.32 - Chronic diastolic (congestive) heart failure (11) Gout Qualifiers: Gout site: elbow Gout etiology: unspecified cause Chronicity: acute Laterality: right Qualified Code(s): M10.9 - Gout, unspecified
[2019-01-24] MEDS: OXYCODONE Oral CONC 10 MG/0.5 ML ORAL.SYG SL PRN (13:39)
[2019-01-24] MEDS ORDERED: *HR* Rivaroxaban 10 MG TABLET PO SCH (17:00)
[2019-01-24] MEDS: Insulin DETEMIR 100 UNIT/ML X5UNITS SQ SCH (20:11)
[2019-01-25] MEDS: Ondansetron 4 MG/2 ML VIAL IVP PRN ×3 (00:14→16:26)
[2019-01-25 04:57] LABS: Basophils % 0.4 %; Eosinophils # 0.1 K/mcL (0.0-0.6); Hematocrit 37.4 % (37.5-50.1); Hemoglobin 11.7 g/dL (12.9-16.9); Immature Granulocytes % 1.2 % (0-4); Lymphocytes # 1.7 K/mcL (0.6-4.6); Lymphocytes % 24.6 %; Mean Corpuscular HGB Conc 31.3 g/dL (31.6-35.5); Mean Corpuscular Hemoglobin 27.3 pg (28.0-33.3); Mean Corpuscular Volume 87.4 fL (83.0-100.0); Mean Platelet Volume 9.5 fL (9.4-12.4); Monocytes # 0.4 K/mcL (0.0-1.3); Monocytes % 6.3 %; Neutrophils # 4.5 K/mcL (1.6-8.9); Platelet Count 184 K/mcL (140-400); Red Blood Count 4.28 M/mcL (4.19-5.50); Red Cell Distribution Width 14.6 % (11.5-14.5); Segmented Neutrophils % 66.5 %
[2019-01-25 05:13] LABS: BUN/Creatinine Ratio 24 (6-26); Blood Urea Nitrogen 31 mg/dL (6-20); Calcium 8.5 mg/dL (8.6-10.3); Carbon Dioxide 25 mEq/L (23-29); Chloride 103 mEq/L (98-107); Glucose 282 mg/dL (70-105); Osmolality,Calculated 305 (280-300); Potassium 3.9 mEq/L (3.5-5.1); Sodium 139 mEq/L (136-145); eGFR For Non-African Americans 58 (> 60)
[2019-01-25] MEDS: OXYCODONE Oral CONC 10 MG/0.5 ML ORAL.SYG SL PRN ×2 (08:10→14:06)
[2019-01-25] MEDS: Aspirin 81 MG TAB.CHEW PO SCH (08:11)
[2019-01-25] MEDS: Insulin LISPRO 300 UNITS/3 ML VIAL SQ SCH ×2 (08:12→11:39)
--- NOTE | 2019-01-25 08:54 | Urology Progress Note ---
Date of Encounter: 01/25/19 Time of Encounter: 08:20 (d) - Assessment and Plan (1) Calculus of kidney Current Visit: Yes Status: Acute Assessment and plan: Patient is a 58-year-old male who presents today status post right ureteroscopy, laser lithotripsy, basket stone extraction, and stent placement. Vital signs are currently stable and afebrile. Renal function is improved and reassuring. We discussed postoperative expectations with indwelling ureteral stent. Patient is aware he will require at least 1 more ureteroscopic procedure for definitive stone extraction. Patient may try Levsin for ureteral spasm. Progress Note Narrative: POD #2. Patient seen and examined lying in bed in apparent distress. Patient reports continued right flank pain, nausea and vomiting. Patient is to pain medicine and feeling somewhat better. Patient reports hematuria is improving. Patient reports he is voiding without difficulty. Patient denies any fever, chills, chest pain, dyspnea. Objective Initial Vital Signs Temp Pulse Resp BP Pulse Ox 98.1 F 91 20 130/74 94 01/23/19 03:07 01/23/19 03:07 01/23/19 03:07 01/23/19 03:07 01/23/19 03:07 - General physical appearance Present: no distress, no pain, obese - Respiratory Present: normal expansion, normal respiratory effort - Abdomen Present: soft, tender (RLQ tenderness ) - Genitourinary Present: other (no CVAT) - Integumentary Present: no rash, no abnormal pigmentation - Musculoskeletal Present: normal posture - Psychiatric Present: oriented to time, oriented to person, oriented to place, speech is normal, memory intact - Labs 01/25/19 04:18 01/25/19 04:18 Diabetes panel 01/25/19 Range/Units 04:18 Sodium 139 (136-145) mEq/L Potassium 3.9 (3.5-5.1) mEq/L Chloride 103 (98-107) mEq/L Carbon Dioxide 25 (23-29) mEq/L BUN 31 H (6-20) mg/dL Creatinine 1.29 (0.70-1.30) mg/dL Glucose 282 H (70-105) mg/dL Calcium 8.5 L (8.6-10.3) mg/dL Calcium panel 01/25/19 Range/Units 04:18 Calcium 8.5 L (8.6-10.3) mg/dL Pituitary panel 01/25/19 Range/Units 04:18 Sodium 139 (136-145) mEq/L Potassium 3.9 (3.5-5.1) mEq/L Chloride 103 (98-107) mEq/L Carbon Dioxide 25 (23-29) mEq/L BUN 31 H (6-20) mg/dL Creatinine 1.29 (0.70-1.30) mg/dL Glucose 282 H (70-105) mg/dL Calcium 8.5 L (8.6-10.3) mg/dL Adrenal panel 01/25/19 Range/Units 04:18 Sodium 139 (136-145) mEq/L Potassium 3.9 (3.5-5.1) mEq/L Chloride 103 (98-107) mEq/L Carbon Dioxide 25 (23-29) mEq/L BUN 31 H (6-20) mg/dL Creatinine 1.29 (0.70-1.30) mg/dL Glucose 282 H (70-105) mg/dL Calcium 8.5 L (8.6-10.3) mg/dL Consult Discharge Plan - Plan Referrals: Manuel Swanson MD [Primary Care Provider] -
--- NOTE | 2019-01-25 10:00 | Electrocardiograph Report ---
[address] [address] Test Date: 2019-01-23 Pat Name: Lg Sanford Department: 115 Room: 3A Gender: M Sonography Technologist: [id number] : 1960 Requested By: Juan F Vasquez Order Number: [id number] Reading MD: Shabbir Connors Measurements Intervals [place] Rate: 61 P: 60 W[place]: 193 QRS: 75 QRSD: 102 T: 55 QT: 411 QTc: 415 Interpretive Statements SINUS RHYTHM Electronically Signed On 01-25-2019 9:59:15 EDT by Shabbir Connors
[2019-01-25 14:10] VITALS: BP 130/71
[2019-01-25] MEDS ORDERED: Hyoscyamine SL 0.125 MG TAB.SUBL SL PRN (15:06)
--- NOTE | 2019-01-25 15:11 | Internal Med Progress Note ---
Hospitalist Progress Note - Encounter Date of Encounter: 01/25/19 Time of Encounter: 15:07 - Subjective Interval History: Patient complains of constipation and continued right flank pain which is spasmodic in nature. Patient has had immature year consistently. He denies any fevers or chills overnight. No nausea or vomiting. Tolerating diet well. - Exam Vitals: Temp Pulse Resp BP Pulse Ox 97.9 F 55 19 130/71 96 01/25/19 14:10 01/25/19 14:10 01/25/19 14:10 01/25/19 14:10 01/25/19 14:10 Exam: General: Patient is alert, mild distress, oriented x 3 morbidly obese ENT: Mucous membranes moist Respiratory: Good respiratory effort. Normal breath sounds. No wheezing or crackles. Cardiovascular: Regular rate and rhythm. s1 and s2 normal No clicks, rubs, g allops, or murmurs. No pedal edema Abdomen: Abdomen is soft, mild right lower quadrant tenderness. Bowel sounds are present Musculoskeletal: Spontaneously moving all extremities Skin: warm, dry, intact. Neuro: Alert oriented x 3 normal cranial nerves, no focal deficits - Assessment and Plan (1) Acute kidney injury Current Visit: Yes Status: Acute (2) Hydronephrosis concurrent with and due to calculi of kidney and ureter Current Visit: Yes Status: Acute (3) Atrial fibrillation Current Visit: Yes Status: Chronic (4) Diabetes mellitus Current Visit: Yes Status: Chronic (5) TED (obstructive sleep apnea) Current Visit: No Status: Chronic (6) Hypertension Current Visit: No Status: Chronic (7) DVT prophylaxis Current Visit: No Status: Acute (8) Coronary artery disease Current Visit: No Status: Chronic (9) Congestive heart failure (CHF) Current Visit: Yes Status: Chronic (10) Depression with anxiety Current Visit: No Status: Chronic (11) Gout Current Visit: No Status: Chronic (12) History of ischemic right MCA stroke Current Visit: No Status: Chronic - Summary of Assessment and Plan Summary of Assessment and Plan: Status post ureteroscopy with laser lithotripsy, basket stone extraction and stent placement. Postop day 2. Urology following. Will place him on Levsin for ureteral spasms. Continue supportive care. urine cultures have been negative. Will place patient on laxatives and stool softeners for constipation. Awaiting evaluation by physical therapy. Xarelto on hold as patient developed hematuria. Hemoglobin levels have fairly stable. We will continue to monitor. Renal function is improving. Continue to use CPAP while lying down for sleep apnea. Blood sugars are elevated. Will increase sliding scale coverage. Blood pressure is well controlled. Moderate risk for complications. - Time Spent with Patient Total time spent is greater than 50% in coordination of care (as documented) at patient's floor/unit and/or counseling patient: Internal Medicine: Result - Labs CBC & Chem 7: 01/25/19 04:18 01/25/19 04:18 Labs: Short CBC 01/25/19 Range/Units 04:18 WBC 6.7 (4.3-11.1) K/mcL Hgb 11.7 L (12.9-16.9) g/dL Hct 37.4 L (37.5-50.1) % Plt Count 184 (140-400) K/mcL Neutrophils # 4.5 (1.6-8.9) K/mcL BMP 01/25/19 04:18 Sodium 139 Potassium 3.9 Chloride 103 Carbon Dioxide 25 BUN 31 H Creatinine 1.29 Glucose 282 H Calcium 8.5 L - ABG Interpretation ABG results: PT/INR, D-dimer PT 13.5 Seconds (9.4-12.1) H 01/24/19 04:07 Consult Discharge Plan - Plan Referrals: Manuel Swanson MD [Primary Care Provider] - (3) Atrial fibrillation Qualifiers: Atrial fibrillation type: chronic Qualified Code(s): I48.2 - Chronic atrial fibrillation (4) Diabetes mellitus Qualifiers: Diabetes mellitus type: type 2 Diabetes mellitus chcf insulin use: with chcf use Diabetes mellitus complication status: with neurologic complications Diabetes mellitus complication detail: with polyneuropathy Qualified Code(s): E11.42 - Type 2 diabetes mellitus with diabetic polyneuropathy; Z79.4 - senior living (current) use of insulin (6) Hypertension Qualifiers: Hypertension type: essential hypertension Qualified Code(s): I10 - Essential (primary) hypertension (8) Coronary artery disease Qualifiers: Coronary Disease-Associated Artery/Lesion type: [place] artery [place] vs. transplanted heart: [place] heart Associated angina: without angina Qualified Code(s): I25.10 - Atherosclerotic heart disease of [place] coronary artery without angina pectoris (9) Congestive heart failure (CHF) Qualifiers: Heart failure type: diastolic Heart failure chronicity: chronic Qualified Code(s): I50.32 - Chronic diastolic (congestive) heart failure (11) Gout Qualifiers: Gout site: elbow Gout etiology: unspecified cause Chronicity: acute Laterality: right Qualified Code(s): M10.9 - Gout, unspecified
[2019-01-25] MEDS ORDERED: Insulin LISPRO 300 UNITS/3 ML VIAL SQ SCH ×3 (16:20→17:00)
--- NOTE | 2019-01-25 17:00 | Discharge Summary ---
- NOTES TO OUTPATIENT PROVIDER Notes to Outpatient Provider: Patient admitted for ureteral stone with obstruction. Evaluated by urology and underwent ureteroscopy and stone retrieval. Also had acute kidney injury which has now resolved. He will be discharged today. Orders not resulted at time of discharge: Pending orders 01/23/19 14:45 XR KUB [XR] Routine 01/23/19 15:32 Calculi (stone) Analysis Routine Surgical Pathology [PTH] Routine 01/26/19 04:00 Complete Blood Count [HEME] AM 0400 Date of Encounter: 01/25/19 Time of Encounter: 16:58 - Discharge Diagnosis (1) Acute kidney injury Priority: Primary Status: Acute (2) Hydronephrosis concurrent with and due to calculi of kidney and ureter Priority: Secondary Status: Acute (3) Atrial fibrillation Priority: Secondary Status: Chronic Qualifiers: Atrial fibrillation type: chronic Qualified Code(s): I48.2 - Chronic atrial fibrillation (4) Diabetes mellitus Priority: Secondary Status: Chronic Qualifiers: Diabetes mellitus type: type 2 Diabetes mellitus penitentiary insulin use: with penitentiary use Diabetes mellitus complication status: with neurologic complications Diabetes mellitus complication detail: with polyneuropathy Qualified Code(s): E11.42 - Type 2 diabetes mellitus with diabetic polyneuropathy; Z79.4 - technician terminal and repeater (current) use of insulin (5) TED (obstructive sleep apnea) Priority: Secondary Status: Chronic (6) Hypertension Priority: Secondary Status: Chronic Qualifiers: Hypertension type: essential hypertension Qualified Code(s): I10 - Essential (primary) hypertension (7) DVT prophylaxis Priority: Secondary Status: Acute (8) Coronary artery disease Priority: Secondary Status: Chronic Qualifiers: Coronary Disease-Associated Artery/Lesion type: [place] artery [place] vs. transplanted heart: [place] heart Associated angina: without angina Qualified Code(s): I25.10 - Atherosclerotic heart disease of [place] coronary artery without angina pectoris (9) Congestive heart failure (CHF) Priority: Secondary Status: Chronic Qualifiers: Heart failure type: diastolic Heart failure chronicity: chronic Qualified Code(s): I50.32 - Chronic diastolic (congestive) heart failure (10) Depression with anxiety Priority: Secondary Status: Chronic (11) Gout Priority: Secondary Status: Chronic Qualifiers: Gout site: elbow Gout etiology: unspecified cause Chronicity: acute Laterality: right Qualified Code(s): M10.9 - Gout, unspecified (12) History of ischemic right MCA stroke Priority: Secondary Status: Chronic Hospital course: Mr. Sanford is a 58 year old male Patient with history of prior CVA, diabetes, who was admitted for ureteral stone with obstruction. He was Evaluated by urology and underwent ureteroscopy and stone retrieval and stent placement. He had acute kidney injury which has now resolved. He developed hematuria post procedure and so we are holding his Xarelto 88 he may resume taking it in 2 days. His Lasix is also on hold currently but he can resume taking it in 2 days. He will be discharged today and will follow up with urology. Discharge discussed with: patient, family, nurse - Time Spent with Patient Total time spent providing and/or coordinating discharge services: Time spent: Less than 30 minutes (25 min) - Discharge Medications Prescriptions: New Hyoscyamine SL [Levsin Sl] 0.125 mg SL TID PRN #15 tab.subl PRN Reason: Ureteral spasm OxyCODONE Immed Rel [Roxicodone 5 MG] 5 mg PO Q6HR PRN 5 Days #14 tablet PRN Reason: Pain Continued Insulin Glargine,Hum.rec.anlog [Lantus Solostar] 80 unit SQ HS Aspirin 81 mg PO DAILY Rivaroxaban [Xarelto] 20 mg PO 1700 Furosemide [Lasix] 60 mg PO DAILY Insulin ASPART [Novolog Flexpen] 0 unit SQ AD PRN PRN Reason: sliding scale Sertraline [Zoloft] 50 mg PO DAILY Docusate [Colace] 100 mg PO BID Spironolactone [Aldactone] 25 mg PO DAILY Lidocaine Patch [Lidoderm 5% patch] 1 each TP HS Carvedilol [Coreg] 25 mg PO BID Home Medications: Insulin Glargine,Hum.rec.anlog [Lantus Solostar] 80 unit SQ HS 07/05/15 [H istory] Aspirin 81 mg PO DAILY 07/22/16 [History] Rivaroxaban [Xarelto] 20 mg PO 1700 07/22/16 [History] Carvedilol [Coreg] 25 mg PO BID 11/14/18 [History] Docusate [Colace] 100 mg PO BID 11/14/18 [History] Lidocaine Patch [Lidoderm 5% patch] 1 each TP HS 11/14/18 [History] Sertraline [Zoloft] 50 mg PO DAILY 11/14/18 [History] Spironolactone [Aldactone] 25 mg PO DAILY 11/14/18 [History] Furosemide [Lasix] 60 mg PO DAILY 01/24/19 [History] Insulin ASPART [Novolog Flexpen] 0 unit SQ AD PRN 01/24/19 [History] Hyoscyamine SL [Levsin Sl] 0.125 mg SL TID PRN #15 tab.subl 01/25/19 [Rx] OxyCODONE Immed Rel [Roxicodone 5 MG] 5 mg PO Q6HR PRN 5 Days #14 tablet 01/25/19 [Rx] Allergies/Adverse Reactions: Allergy/AdvReac Type Severity Reaction Status Date / Time sotalol Allergy Unknown See Verified 01/23/19 03:10 Comments lisinopril Allergy Anaphylaxis Verified 01/23/19 03:10 amiodarone AdvReac See Verified 01/23/19 03:10 Comments amitriptyline AdvReac Confusion Verified 01/23/19 03:10 dofetilide [From Tikosyn] AdvReac Insomnia Verified 01/23/19 03:10 Nortriptyline AdvReac Confusion Verified 01/23/19 03:10 trazodone AdvReac Confusion Verified 01/23/19 03:10 Zolpidem [From Ambien] AdvReac Confusion Verified 01/23/19 03:10 Date of admission: 01/23/19 17:21 Primary care physician: Manuel Swanson MD Consults: 01/23/19 07:05 Consult to Urology [CONS] Stat Consulting Provider: [facility] [place] Reason for Consult: obstructing nephrolithiasis, LIZZY Call Completed: Yes 01/23/19 10:49 Consult to Recreation Attendant [CONS] Routine Reason for SW Consult: pt has [facility] for pt/ot and aide 01/24/19 12:12 Consult to Occupational Therapy [CONS] Routine Comment: Evaluate, develop and implement POC Reason for Consult: Generalized weakness Does patient have active BEDREST order?: No Is patient medically & hemodynamically stable?: Yes Consult to Physical Therapy [CONS] Routine Comment: Evaluate, develop and implement POC Reason for Consult: Generalized weakness Does patient have active BEDREST order?: No Is patient medically & hemodynamically stable?: Yes Discharging clinician: Nathen Flores Anticipated date of discharge: 01/25/19 - Constitutional Vitals: Temp Pulse Resp BP Pulse Ox 97.9 F 55 19 130/71 96 01/25/19 14:10 01/25/19 14:10 01/25/19 14:10 01/25/19 14:10 01/25/19 14:10 General appearance: Present: cooperative, A&O X 3, pleasant, answers questions appropriately Exam: . - Respiratory Respiratory exam: Present: CTAB. Absent: accessory muscle use, rales, rhonchi, wheezes - Cardiovascular Cardiovascular exam: Present: RRR, +S1, +S2. Absent: diastolic murmur, gallop, rubs, systolic murmur - GI/Abdominal GI/Abdominal exam: Present: normal bowel sounds, soft, tenderness (right lower quadrant), no peritoneal signs. Absent: distended - Patient Status Disposition: Home Health Service Condition: Fair Functional capacity at discharge: wheelchair bound Overall status at discharge: patient is progressing back to baseline - Discharge Instructions Instructions: Atrial Fibrillation (DC) Follow Up With: Manuel Swanson MD [Primary Care Provider] - (in1 -2 weeks) Juan F Vasquez MD [Partnered Physician] - (in 1-2 weeks) - Diet and Activity Activity: as per physical therapy, increase activity as tolerated Diet: diabetic diet, low fat, low cholesterol, low salt diet
--- NOTE | 2019-01-25 17:07 | Physician Discharge Referral ---
Home Health/Hosp Referral Info Transfer to: Home Health Provider in Charge Post Discharge: PCP - Diagnosis (1) Acute kidney injury Priority: Primary Status: Acute (2) Hydronephrosis concurrent with and due to calculi of kidney and ureter Priority: Secondary Status: Acute (3) Atrial fibrillation Priority: Secondary Status: Chronic (4) Diabetes mellitus Priority: Secondary Status: Chronic (5) TED (obstructive sleep apnea) Priority: Secondary Status: Chronic (6) Hypertension Priority: Secondary Status: Chronic (7) DVT prophylaxis Priority: Secondary Status: Acute (8) Coronary artery disease Priority: Secondary Status: Chronic (9) Congestive heart failure (CHF) Priority: Secondary Status: Chronic (10) Depression with anxiety Priority: Secondary Status: Chronic (11) Gout Priority: Secondary Status: Chronic (12) History of ischemic right MCA stroke Priority: Secondary Status: Chronic - Respiratory Orders Smoking Cessation: Smoking cessation has been advised. For more information, call the [place] Tobacco Quit Line at 7-943-JXKW-NOW. - Diet/Nutrition Diet/Nutrition Orders: Cardiac - Activity Activity Orders: Walker Activity: List: Up with assist - Services Needed Following services are medically necessary services: Physical Therapy, Occupational Therapy - Transfer Medications Prescriptions: Hyoscyamine SL [Levsin Sl] 0.125 mg SL TID PRN #15 tab.subl PRN Reason: Ureteral spasm OxyCODONE Immed Rel [Roxicodone 5 MG] 5 mg PO Q6HR PRN 5 Days #14 tablet PRN Reason: Pain Home Medications: Insulin Glargine,Hum.rec.anlog [Lantus Solostar] 80 unit SQ HS 07/05/15 [History] Aspirin 81 mg PO DAILY 07/22/16 [History] Rivaroxaban [Xarelto] 20 mg PO 1700 07/22/16 [History] Carvedilol [Coreg] 25 mg PO BID 11/14/18 [History] Docusate [Colace] 100 mg PO BID 11/14/18 [History] Lidocaine Patch [Lidoderm 5% patch] 1 each TP HS 11/14/18 [History] Sertraline [Zoloft] 50 mg PO DAILY 11/14/18 [History] Spironolactone [Aldactone] 25 mg PO DAILY 11/14/18 [History] Furosemide [Lasix] 60 mg PO DAILY 01/24/19 [History] Insulin ASPART [Novolog Flexpen] 0 unit SQ AD PRN 01/24/19 [History] Hyoscyamine SL [Levsin Sl] 0.125 mg SL TID PRN #15 tab.subl 01/25/19 [Rx] OxyCODONE Immed Rel [Roxicodone 5 MG] 5 mg PO Q6HR PRN 5 Days #14 tablet 01/25/19 [Rx] Allergies/Adverse Reactions: Allergy/AdvReac Type Severity Reaction Status Date / Time sotalol Allergy Unknown See Verified 01/23/19 03:10 Comments lisinopril Allergy Anaphylaxis Verified 01/23/19 03:10 amiodarone AdvReac See Verified 01/23/19 03:10 Comments amitriptyline AdvReac Confusion Verified 01/23/19 03:10 dofetilide [From Tikosyn] AdvReac Insomnia Verified 01/23/19 03:10 Nortriptyline AdvReac Confusion Verified 01/23/19 03:10 trazodone AdvReac Confusion Verified 01/23/19 03:10 Zolpidem [From Ambien] AdvReac Confusion Verified 01/23/19 03:10 Certification: Further, I certify that my clinical findings support that this patient is homebound (i.e. absences from home require considerable and taxing effort and are for medical reasons or taoism services or infrequently or short duration when for other reasons) because: Homebound Reason: Patient requires assistance of a person or device to safely leave home Attestation: My signature below is to certify that this patient is under my care and that I, or nurse practitioner, or a physician's construction assistant working with me, has a [id number] encounter with this patient.
[2019-01-26] MEDS ORDERED: Insulin DETEMIR 100 UNIT/ML X5UNITS SQ SCH (09:00)
[2019-01-26 21:58] LABS: Calculi Mass 233 mg
== END 2019-01-25 19:01 | disposition home health service (06) | DRG 660 ==
LOC: EMEROOARM 02:54 → 3ANU 02:54 → SUATTDRO 17:21
PROVIDERS: ADMIT Internal Medicine Nephrology; ATTEND Internal Medicine